=== PATIENT | female | born 1955 | race Caucasian/White ===

== ENCOUNTER 2021-12-12 13:36 | Outpatient (CLI) | payer MEDICARE, SELFPAY ==
--- NOTE | 2021-12-12 13:56 | MR_ITS ---
WS: [id number] MRI ORBITs with and without CONTRAST. COMPARISON: None Multiplanar, multisequence imaging is performed with and without contrast. Sagittal and axial T1 fat sat sequences post-MultiHance 20 cc IV. No acute infarct or hemorrhage. Mild cerebral atrophy. Numerous T2 and FLAIR signal hyperintensities in the periventricular and subcortical white matter distribution. Slightly greater around the occipit al horns. No infarcts in the cerebellum or ysabel. No prior infarcts. No inferior displacement of cereb ellar tonsils. Clivus and pituitary gland are normal. High-resolution imaging through the orbits demonstrates no mass or abnormal signal. Orbits and globes are symmetric bilaterally. The optic nerves and extraocular muscles are normal. No enhancement or si gnal abnormality in the optic nerve to suggest neuritis. No mass effect upon the infundibulum or opti c chiasm. No enhancing masses. The visualized [place] of [place] on this MRI is negative. No aneurysms or occlusions. No significant sinus disease. Mastoid air cells are clear. MR/MR head orbits wo/w* 65683/[id number] IMPRESSION: 1. Orbits and globes are negative. No mass or hemorrhage. 2. No mass noted affecting the optic chiasm or along the optic tracts. 3. To exclude small aneurysm MR angiogram or CT angiogram should can be obtain ed. By this MRI examination no aneurysm is detected. 4. Minimal age-related atrophy with moderate T2 and FLAIR signal hyperintensit ies within the white matter. 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 Vasculitis or demyelinating disease could be considered based upon the patien t's symptoms.
[2021-12-12] MEDS: gadobenate dimeglumine 20 mL vial IV (15:39)
== END 2021-12-12 13:37 | disposition home or self-care (01) ==
LOC: RAD 13:40
PROVIDERS: Visit Provider Internal Medicine Nephrology
DX: H53.2 Diplopia (principal); G31.9 Degenerative disease of nervous system, unspecified
CPT/HCPCS: 70543; 70553

== ENCOUNTER 2024-11-16 12:06 | Emergency (ER) | payer MEDICARE, SELFPAY ==
[2024-11-16 12:11] VITALS: BP 130/90; PULSE 117; RESP 17; TEMP 36.7; O2SAT 97; BMI 34.3
[2024-11-16 12:56] LABS: Basophils % 0.2 %; Eosinophils % 0.1 %; Hematocrit 46.4 % (36-47); Lymphocytes % 11.2 %; Mean Corpuscular HGB Conc 32.3 g/dL (30-55); Mean Corpuscular Volume 89.7 fl (85-98); Mean Platelet Volume 9.8 fL (7.4-10.4); Monocytes # 0.4 10^3/uL (0.2-0.9); Monocytes % 4.5 %; Neutrophils # 7.65 10^3/uL (1.8-7.7); Neutrophils % 83.5 %; Nucleated Red Blood Cells % 0 %; Platelet Count 333 10^3/cmm (157-399); Red Blood Count 5.17 10^6/uL (3.85-5.65); White Blood Count 9.17 10^3/uL (3.29-11.43)
--- NOTE | 2024-11-16 13:10 | ECG_ITS ---
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 Measurements Intervals [place] Rate: 108 P: 41 TN: 172 QRS: 12 QRSD: 80 T: 187 QT: 320 QTc: 430 Interpretive Statements SINUS TACHYCARDIA POSSIBLE ANTERIOR MYOCARDIAL INFARCTION , PROBABLY OLD [30 ms Q WAVE IN V3/V4, OR R < 0.2 mV IN V4] ABNORMAL RHYTHM ECG No previous ECG available for comparison Electronically Signed On 11-19-2024 19:15:24 CDT by Po Beasley M.D. [id number]
[2024-11-16 13:18] LABS: Alanine Aminotransferase 24 U/L (0-33); Albumin Level 3.9 g/dL (3.5-5.2); Alkaline Phosphatase 74 U/L (35-105); Anion Gap 16.9 (5-19); Aspartate Amino Transferase 25 U/L (0-32); Blood Urea Nitrogen 12 mg/dL (8-23); Calcium 8.9 mg/dL (8.5-10.5); Carbon Dioxide 20 mmol/L (22-29); Chloride 104 mmol/L (98-107); Creatinine Clr Calc Pharmacy 71.3868; Globulin 3.2 g/dL (1.3-4.6); Glomerular Filtration Rate 82.7 mL/min (90-130); Glucose 148 mg/dL (65-115); Lipase 25 U/L (13-60); Magnesium 2.1 mg/dL (1.7-2.3); Osmolality Calculated 287 mOsm/kg (285-295); Potassium 3.9 mmol/L (3.5-5.1); Sodium 137 mmol/L (136-145); Total Bilirubin 0.7 mg/dL (0.15-1.2); Total Protein 7.1 g/dL (6.6-8.7)
--- NOTE | 2024-11-16 13:21 | ED_ITS ---
HPI - General Adult 2 General: Chief complaint: Nausea/Vomiting/Diarrhea Stated complaint: n/v/f, chills, weakness Time Seen by Provider: 11/16/24 12:18 Source: patient Mode of arrival: ambulatory Limitations: no limitations History of Present Illness: Patient is a very pleasant 69-year-old female presents to ED today along with her sister for medical evaluation. Patient states yesterday evening her sister had fixed spaghetti with turkey meat sauce. Patient states almost immediately after eating she began having projectile vomiting . Patient states she emptied her stomach contents and did not have any further episodes of vomiting but remained nauseous throughout the evening. She also tells me that she had horrible heartburn all night and slept propped up in a recliner. She did take 2 Pepcid without relief. This morning she took an omeprazole with some alleviation. Patient tells me she is having generalized weakness. She arrives complaining of a headache. Blood pressure when I was in with patient was 190/108. She states her blood pressure is normally controlled at home with Lisinopril. Of note, approximately 2 weeks ago she was treated for an episode of diverticulitis which she has had previously-sees GI in [place]. She completed a round of Ciprofloxacin/Flagyl. She is not complaining of abdominal pain. Previous abdominal surgeries include a cholecystectomy, appendectomy, hysterectomy with bilateral oophorectomy. Onset (ago): hour(s) Severity: moderate Relieving factors: none Exacerbating factors: none Associated symptoms: Reports headache(s), nausea and vomiting; Deny chest pain, dyspnea, malaise, rash, palpitations or syncope Treatments prior to arrival: none Related Data Home Medications ?Medication ?Instructions ?Recorded ?Confirmed atorvastatin 10 mg tablet 10 mg PO DAILY 11/16/2411/06 fluticasone propionate 50 2 spray intranasal DAILY 08/0211/16/24 mcg/actuation nasal spray,suspension levothyroxine 100 mcg tablet 100 mcg PO DAILY 11/16/24 11/16/24 lisinopril 20 mg tablet 20 mg PO DAILY 11/16/2411/06 nystatin 100,000 unit/mL oral 4 ml PO QID 11/16/2408/02 suspension psyllium husk 3.4 gram/5.4 gram 1 tbsp PO DAILY 11/16/24 oral powder (Metamucil) Previous Rx's ?Medication ?Instructions ?Recorded ondansetron 4 mg disintegrating 4 mg PO Q8H PRN nausea and 11/16/24 tablet vomiting #10 tabs Allergies Allergy/AdvReac Type Severity Reaction Status Date / Time azithromycin Allergy ALGY-Rash Verified 11/16/24 12:14 Penicillins Allergy ALGY-Rash Verified 11/16/24 12:14 Sulfa (Sulfonamide Allergy ALGY-Rash Verified 11/16/24 12:14 Antibiotics) tetracycline Allergy ALGY-Rash Verified 11/16/24 12:14 Review of Systems 2 Const: Reports: other (generalized weakness); Denies: fever(s), chills, body aches, fatigue or malaise Eyes: Denies: change in vision or blurry vision Card: Denies: chest pain, palpitations, irregular heart rhythm, edema, swelling of feet/ankles, lightheadedness, syncope, pre-syncope, dyspnea on exertion, orthopnea, leg pain with exertion or acrocyanosis Resp: Denies: dyspnea, productive cough, non-productive cough, wheezing or pain on inspiration GI: Reports: nausea, vomiting and heartburn; Denies: abdominal pain or diarrhea : Denies: flank pain, difficulty voiding, dysuria, urinary frequency, urinary urgency or urinary hesitancy Musc: Denies: neck pain, back pain, extremity pain, extremity swelling or joint pain Skin/Breast: Denies: rash Neuro: Reports: headache(s); Denies: numbness in extremities, weakness in extremities, sensory changes or dizziness PFSH ED 2 PFSH: Surgical History History of bilateral oophorectomy History of hysterectomy Hx of appendectomy History of cholecystectomy Physical Exam 2 Const: COMMON NORMALS: no acute distress, patient oriented x3, no limitations, healthy appearing, alert and well nourished GENERAL APPEARANCE: cooperative ORIENTATION/CONSCIOUSNESS: Yes awake, Yes oriented to person, Yes oriented to place and Yes oriented to time HENMT: COMMON NORMALS: normocephalic and atraumatic HEAD & SCALP: normal to inspection, normocephalic and atraumatic FACE & SINUS: normal facial exam and face symmetric Eye: GENERAL EYE: appearance normal, both eyes and all related structures Neck/C-Spine: COMMON NORMALS: full ROM, no lymphadenopathy, supple and no meningeal signs Chest: COMMONS NORMALS: normal inspection of the chest Resp: COMMON NORMALS: normal respiratory effort and clear to auscultation bilaterally AUSCULTATION: clear to auscultation bilaterally Cardio: COMMON NORMALS: regular rate RATE: regular rate RHYTHM: abnormal rhythm GI: COMMON NORMALS: Normal to inspection, nondistended, normoactive bowel sounds present, Soft to palpation, non-tender, No hepatosplenomegaly present and no masses PALPATION: Yes Soft to palpation and Yes No hepatosplenomegaly present : COMMON NORMALS: Yes no CVA tenderness BLADDER/KIDNEY EXAM: Yes no CVA tenderness Back/Pelvis: COMMON NORMALS: no CVA tenderness and thoracic and lumbar spine normal to inspection Extremity: COMMON NORMALS: normal to inspection, capillary refill normal, no clubbing, cyanosis or edema, no calf tenderness and no pedal edema GENERAL: Y es normal exam except as noted Neuro: OLI COMA SCALE: document GCS findings Lavon coma scale eye opening: Spontaneous Oli coma scale verbal response: Orientated Oli coma scale motor response: Obey commands Lavon coma scale total score: 15 COMMON NORMALS: patient oriented x3, moves all extremities, no focal motor deficits and no sensory deficits noted SENSORIUM/ORIENTATION: Yes alert, Yes oriented to person, Yes oriented to place and Yes oriented to time MENINGEAL SIGNS: Yes no meningeal signs Skin: COMMON NORMALS: no rashes or lesions noted GENERAL SKIN EXAM: no rashes or lesions noted Course 2 Vital Signs: Vital signs: Vital Signs Temperature 98.0 F 11/16/24 12:11 Pulse Rate 91 11/16/24 14:15 Respiratory Rate 17 11/16/24 12:11 Blood Pressure 147/83 11/16/24 14:15 Pulse Oximetry 94 11/16/24 14:15 Oxygen Delivery Me thod Room Air 11/16/24 14:15 [facility] [place] - General Adult Medical Decision Making Patient reports feeling much better after fluids and antiemetics. She was able to hold down fluids here without issue. Her headache is gone. Her vitals are stable. Blood work overall is unremarkable. Cardiac workup initiated due age/female with history of heartburn. Troponins and EKGs are unremarkable. Patient feels comfortable going home at this time. Recommend follow-up with primary care. Return to ED precautions discussed. Discussed bland liquid diet and advancing as tolerated. Medical Records I reviewed the patient's medical records. Lab Data I reviewed the patient's lab results. 11/16/24 12:50 11/16/24 12:50 Radiology Impressions Chest X-Ray 11/16/24 13:31 IMPRESSION: No acute findings. Laboratory Results WBC 9.17 10^3/uL (3.29-11.43) 11/16/24 12:50 RBC 5.17 10^6/uL (3.85-5.65) 11/16/24 12:50 Hgb 15.00 g/dL (11.27-16.99) 11/16/24 12:50 Hct 46.4 % (36-47) 11/16/24 12:50 MCV 89.7 fl (85-98) 11/16/24 12:50 MCH 29.0 pg (27-33) 11/16/24 12:50 MCHC 32.3 g/dL (30-55) 11/16/24 12:50 RDW 13.0 % (12.1-15.1) 11/16/24 12:50 Plt Count 333 10^3/cmm (157-399) 11/16/24 12:50 MPV 9.8 fL (7.4-10.4) 11/16/24 12:50 Neut % (Auto) 83.5 % 11/16/24 12:50 Lymph % (Auto) 11.2 % 11/16/24 12:50 [place] % (Auto) 4.5 % 11/16/24 12:50 Eos % (Auto) 0.1 % 11/16/24 12:50 Baso % (Auto) 0.2 % 11/16/24 12:50 Neut # (Auto) 7.65 10^3/uL (1.8-7.7) 11/16/24 12:50 Lymph # (Auto) 1.0 10^3/uL (0.8-4.8) 11/16/24 12:50 [place] # (Auto) 0.4 10^3/uL (0.2-0.9) 11/16/24 12:50 Eos # (Auto) 0.0 10^3/uL (0.0-0.8) 11/16/24 12:50 Baso # (Auto) 0.0 10^3/uL (0.0-0.1) 11/16/24 12:50 Nucleated RBC % (auto) 0 % 11/16/24 12:50 Nucleated RBCs # 0.0 /100WBC 11/16/24 12:50 Sodium 137 mmol/L (136-145) 11/16/24 12:50 Potassium 3.9 mmol/L (3.5-5.1) 11/16/24 12:50 Chloride 104 mmol/L (98-107) 11/16/24 12:50 Carbon Dioxide 20 mmol/L (22-29) L 11/16/24 12:50 Anion Gap 16.9 (5-19) 11/16/24 12:50 BUN 12 mg/dL (8-23) 11/16/24 12:50 Creatinine 0.7 mg/dL (0.5-0.9) 11/16/24 12:50 GFR Calculation 82.7 mL/min (90-130) L 11/16/24 12:50 Glucose 148 mg/dL (65-115) H 11/16/24 12:50 Calculated Osmolality 287 mOsm/kg (285-295) 11/16/24 12:50 Calcium 8.9 mg/dL (8.5-10.5) 11/16/24 12:50 Magnesium 2.1 mg/dL (1.7-2.3) 11/16/24 12:50 Total Bilirubin 0.7 mg/dL (0.15-1.2) 11/16/24 12:50 AST 25 U/L (0-32) 11/16/24 12:50 ALT 24 U/L (0-33) 11/16/24 12:50 Alkaline Phosphatase 74 U/L (35-105) 11/16/24 12:50 Troponin T Baseline 15 ng/L (0-10) H 11/16/24 13:47 Troponin T 120 Minute 14.20 ng/L (0-10) H 11/16/24 15:47 Delta Troponin T -0.80 ABS# (0-10) L 11/16/24 15:47 Total Protein 7.1 g/dL (6.6-8.7) 11/16/24 12:50 Albumin 3.9 g/dL (3.5-5.2) 11/16/24 12:50 Globulin 3.2 g/dL (1.3-4.6) 11/16/24 12:50 Lipase 25 U/L (13-60) 11/16/24 12:50 Urine Color Yellow (Yellow) 11/16/24 15:12 Urine Appearance Cloudy (CLEAR) A 11/16/24 15:12 Urine pH 5.5 (5-7) 11/16/24 15:12 Ur Specific [place] 1.028 (1.005-1.030) 11/16/24 15:12 Urine Protein Trace (Negative) A 11/16/24 15:12 Urine Glucose (UA) Negative (Normal) 11/16/24 15:12 Urine Ketones Trace (Negative) 11/16/24 15:12 Urine Blood Negative (Negative) 11/16/24 15:12 Urine Nitrate Negative (Negative) 11/16/24 15:12 Urine Bilirubin Negative (Negative) 11/16/24 15:12 Urine Urobilinogen 0.2 mg/dL (Negative) 11/16/24 15:12 Ur Leukocyte Esterase Trace (Negative) A 11/16/24 15:12 Urine RBC 0-2 /hpf (0-2) 11/16/24 15:12 Urine WBC 0-5 /hpf (0-5) 11/16/24 15:12 Ur Squamous Epith Cells 6-10 /hpf (0-5) 11/16/24 15:12 Other Crystals 1+ /hpf 11/16/24 15:12 Amorphous Sediment Not Reportable 11/16/24 15:12 Urine Bacteria None seen /hpf (NONE) 11/16/24 15:12 Hyaline Casts 2.46 /lpf 11/16/24 15:12 Urine Mucus 3+ /hpf 11/16/24 15:12 All radiology interpretation(s) finalized by discharge Discharge Plan Discharge Patient Disposition: Home Clinical Impression: Weakness Nausea and vomiting Qualifiers: Vomiting type: unspecified Qualified Code(s): R11.2 - Nausea with vomiting, unspecified Condition: Stable Prescriptions: New ondansetron 4 mg tablet,disintegrating 4 mg PO Q8H PRN (Reason: nausea and vomiting) Qty: 10 0RF No Action nystatin 100,000 unit/mL suspension 4 ml PO QID atorvastatin 10 mg tablet 10 mg PO DAILY lisinopril 20 mg tablet 20 mg PO DAILY levothyroxine 100 mcg tablet 100 mcg PO DAILY fluticasone propionate 50 mcg/actuation spray,suspension 2 spray INTRANASAL DAILY Metamucil 3.4 gram/5.4 gram Powder 1 tbsp PO DAILY Rx Instructions: mix into at least 8 oz of water or juice before administering Discharge Orders: Discharge ED (Routine); Ordered 11/16/24 Ordered By: Mabel Rock Referrals: Isiah Lopez MD [Primary Care Provider] - Activity Restrictions/Additional Instructions: As we discussed, your emergency workup here was unremarkable. You report feeling better after treatment here in the emergency department. It was a pleasure to care for you today. You may follow-up with primary care or return to the emergency department for any further concerns you may have. We discussed using the nausea medications as provided and doing a bland liquid diet over the next few days and advancing as tolerated. 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
--- NOTE | 2024-11-16 13:31 | XRR_ITS ---
PROCEDURE INFORMATION: Exam: XR Chest Exam date and time: 11/16/2024 2:19 PM Age: 69 years old Clinical indication: Other: Heartburn, vomiting TECHNIQUE: Imaging protocol: Radiologic exam of the chest. Views: 1 view. COMPARISON: No relevant prior studies available. FINDINGS: Lungs: Unremarkable. No consolidation. Pleural spaces: Unremarkable. No pleural effusion. No pneumothorax. Heart/Mediastinum: Unremarkable. No cardiomegaly. Bones/joints: Unremarkable. XR/XR chest 1V portable [id number] IMPRESSION: No acute findings.
[2024-11-16] MEDS: ondansetron 2 mg/ML SDV 2 mL 4 MG IVP (14:05)
[2024-11-16] MEDS: pantoprazole 40 mg SDV IVP (14:06)
[2024-11-16] MEDS: sodium chloride 0.9% 1,000 ML 999 ML IV (14:12)
[2024-11-16] MEDS: enalaprilat 2.5 mg/2 mL SDV 0.625 MG IVP (14:13)
[2024-11-16 14:15] VITALS: BP 147/83; PULSE 91; O2SAT 94
[2024-11-16 14:18] LABS: Troponin(5th) Baseline 15 ng/L (0-10)
[2024-11-16] MEDS: acetaminophen 500 mg Tablet 1000 MG PO (14:47)
--- NOTE | 2024-11-16 15:18 | ECG_ITS ---
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
[2024-11-16 15:22] LABS: Bilirubin Urine Negative (Negative); Blood Urine Negative (Negative); Glucose Urine UA Negative (Normal); Ketones Urine Trace (Negative); Leukocyte Esterase Urine Trace (Negative); Nitrate Urine Negative (Negative); Protein Urine Trace (Negative); Specific Gravity, Urine 1.028 (1.005-1.030); Urine Appearance Cloudy (CLEAR); Urine Color Yellow (Yellow); Urobilinogen Urine 0.2 mg/dL (Negative); pH Urine 5.5 (5-7)
[2024-11-16 15:27] LABS: Add Urine Microscopic? YES; Bacteria Urine None Seen /hpf; Hyaline Casts Urine 2.46 /lpf; RBC Urine 0-2 /hpf (0-2); WBC Urine 0-5 /hpf (0-5)
[2024-11-16 15:39] LABS: UA Slide Review UA Slide Review Perf
[2024-11-16 15:40] LABS: Mucus Urine 3+ /hpf
[2024-11-16 15:42] LABS: Add Urine Culture? No; Other Crystals Urine 1+ /hpf
[2024-11-16 16:50] VITALS: BP 119/69; PULSE 71; O2SAT 94
== END 2024-11-16 16:52 | disposition home or self-care (01) ==
PROVIDERS: Emergency Medicine; Emergency Provider Physician Assistant; PCP Family Medicine
DX: R53.1 Weakness (principal); R11.2 Nausea with vomiting, unspecified
CPT/HCPCS: 36415; 71045; 80053; 81001; 83690; 83735; 84484; 85025; 93005; 96374; 96375; 99285; J2405; J2470; J7030